=== PATIENT | female | born 2000 | race African-American/Black ===

== ENCOUNTER 2025-02-03 21:11 | Emergency (ER) | payer OTHER, SELFPAY ==
--- NOTE | ~2025-02-03 | XR_ITS ---
CLINICAL HISTORY: laceration, r o foreign body Left tibia/fibula, 2 views, 4 images COMPARISON: None provided FINDINGS: No acute fracture. No dislocation. Unremarkable soft tissues. No visible foreign body. IMPRESSION: No acute findings. This document has been electronically signed by: Milad Alonso MD on 02/03/2025 22:35:06
--- NOTE | ~2025-02-03 | XR_ITS ---
CLINICAL HISTORY: lacertaion, r o foreign body Right foot, 3 views COMPARISON: None provided FINDINGS: No acute fracture. No dislocation. Unremarkable soft tissues. No visible foreign body. IMPRESSION: No acute findings. This document has been electronically signed by: Milad Alonso MD on 02/03/2025 22:34:51
[2025-02-03 21:22] VITALS: PULSE 142; RESP 22; TEMP 36.4; O2SAT 96; BMI 37.3
--- NOTE | 2025-02-03 21:23 | PC.NURSE ---
pt brought to ed4 from [facility] crying, lacerations to L. knee and R. foot, bleeding minimal. dry blood cleaned up on extremities. Carlos A HOLLAND at bedside for assessment. PO meds will be ordered for pain/anxiety and XR per PA.
[2025-02-03 21:25] VITALS: BP 144/99
[2025-02-03] MEDS: oxyCODONE HCl Immed Release 5 MG TABLET PO (21:26)
[2025-02-03] MEDS: Lidocaine HCl 1%/Epi 1:100,000 10 ML VIAL INFILTRATI (21:26)
[2025-02-03] MEDS: Diphth,Pertus(ACell),Tet Adult 0.5 ML SYRINGE IM (21:27)
--- OUTSIDE RECORDS SUMMARY | 2025-02-03 21:38 | XMS_ITS | Clinical Summary ---
Author Organization [facility] [address] 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 08/14/2022 Active dicyclomine (BENTYL) 10 mg capsule Take 1 Capsule by mouth 3 times daily. 08/14/2022 Active ibuprofen (ADVIL,MOTRIN) 600 mg tablet Take 600 mg by mouth 4 times daily. Active ketoconazole (NIZORAL) 2 % shampoo Apply to affected skin on chest and back, leave on 10-15 minutes then rinse off 08/14/2022 Active Active Problems Problem Noted Date Diagnosed Date Mild intermittent asthma, uncomplicated 08/15/19 23 IBS (irritable bowel syndrome) 04/20/2020 Overview (05/21/2024): Sx improved with famotidine/ bentyl 06/02/20: telemedicine with [facility] GI, lab work for celiac, calprotectin fecal, Tsh, free t4. C/w diccyclomine 1 tab 2-4 times a day. pepcid 20 mg po bid. IBs diet. Anxiety 04/01/2020 Overview (05/21/2024): 05/26: sx controlled with celexa 20 mg Pityriasis versicolor 04/01/2020 Overview (05/21/2024): 03/25: rx for ketoconazole Irregular menstrual bleeding 08/19/2017 Overview (05/21/2024): 08/21: no period for 2 months. nl labs for PCOS. Started on apri [id number] adverse reaction to medication 05/17/2016 Overview (05/21/2024): 05/22: tamiflu trigger migraine headache Migraine without aura and wi thout status migrainosus, not intractable 03/08/2016 Depression 08/12/2015 Overview (05/21/2024): Jose David sanches [facility], med provider same agency. 07/20: celexa 40 mg 03/23: Cecy Coyle 04/24: celexa 20 mg, therapy every other week Acne 12/07/2014 Dysmenorrhea in the adolescent 12/07/2014 Disturbance in sleep behavior 11/16/2013 Overview (05/21/2024): Melatonin 05/26: clonidine Allergic rhinitis 09/13/2010 Overview (05/21/2024): Loratadine in the spring +RAST to ragweed V, oak, birch trees IV, pigweed, marcia grass III 11/16: sx better controlled with zyrtec Last Assessment & Plan: Add claritin in the fall Immunizations Immunization Administration Dates Next Due DTaP (Infanrix) 6wks to less than 7yo ,09/07/2003,2002,09/29,2002 [id number] (Pentacel) 2mo to less than 5yo 09/07/2003,2002,2002,07/31 HPV, Quadrivalent 05/19/2014,01/18/2014,11/17/19 14 Hepatitis B Pediatric (Enger ix B; Recombivax HB) to less than 20 yo 03/22/2003,2002,2002 IPV Inactivated polio (Ipol) 6wks and older 06/02/2007,03/22/2003,2002,07/31 Influenza trivalent, 0.5mL, preservative free (Fluarix; FluLaval; Fluzone) ages 6mo and older (Afluria) 3 years and older 03/29/2020,04/09/2019,01/19/2016,01/21,01/18/2014,01/23/2011,03/13/2006 Influenza trivalent, with pr eservative (Fluzone; Afluria) 6mo and older 02/06/2012,12/19/2009,01/20/2009,02/27,03/09/2007 MMR, measles mumps and rubel la Live (Priorix; M-M-R II) 12mo and older 07/24/2006,09/07/2003 Meningococcal MCV4P 04/09/2019,11/16/2013 Pneumococcal Conjugate Vacci ne, 7 Valent 06/02/2003,2002,2002,07/31 Tdap Tetanus diptheria acell ular pertussis (Boostrix; Adacel) 7yo and older 11/16/2013 Varicella live (Varivax) 12m o and older 07/24/2006,06/02/2003 Surgical History Surgery Date Site/Laterality Comments OTHER SURGICAL HISTORY PROCEDURE: EXCISION BENIGN LESION COMPL; COMMENT: right preauricular sinus tract on 02 TONSILLECTOMY PROCEDURE: HISTORICAL TONSILLECTOMY ADENOIDECTOMY PROCEDURE: HISTORICAL ADENOIDECTOMY NOSE SURGERY 09/05/16 PROCEDURE: SC UNLISTED PROCEDURE NOSE; COMMENT: Dr. Downey, repair of closed displaced non cumminuted nasal fracture Medical History Medical History Date Comments Acute upper respiratory infe ctions of unspecified site DX:Acute upper respiratory i nfections of unspecified site; COMMENT: 03/26/05,03/16/05 Scarlet fever DX:Scarlet fever ; COMMENT: 01/31/05 Acute tonsillitis DX:Acute tonsi llitis; COMMENT: 01/31/05,02 Acute suppurative otitis med ia without spontaneous rupture of eardrum DX:Acute suppurative otitis media without spontaneous rupture of eardrum; COMMENT: 08/08,05/09,04/07, 02/17 Pyogenic granuloma of skin a nd subcutaneous tissue DX:Pyogenic granuloma of ski n and subcutaneous tissue; COMMENT: 02/04/03 Streptococcal sore throat 02/11, 09/12 DX:Str eptococcal sore throat Tonsillar hypertrophy DX:Tonsill ar hypertrophy; COMMENT: sleep study in November, Nondisplaced fracture of fif th left metatarsal bone 11/2011 DX:Nondisplaced fracture of fifth left metatarsal bone; COMMENT: followed by [facility] orthopedics Abdominal pain 03/05 DX:Abdominal lubna n; COMMENT: seen at [facility], neg abd ultrasound/ct for appy Unspecified family circumstance 07/10/2010 DX:Unspecified family circumstance Dysthymia 08/29/2011 DX:Dysthymia Pharyngitis 01/2014 DX:Pharyngitis; COMMENT: seen at urgent care, neg strept Menarche 05/2014 DX:Menarche Mononucleosis 06/29/2015 DX:Mononucleosis ; COMMENT: 06/21: previous infection Passive smoke exposure 04/14/2015 DX:Passiv e smoke exposure Medical non-compliance 08/24/2015 DX:Medica l non-compliance; COMMENT: 08/19: no show to pedi cardiology twice. Unable to make future appts Asthma, mild persistent 10/09/2010 DX:Asthm a, mild persistent; COMMENT: 04/12/15: nl CXr at [facility] wing Concussion 03/26/2017 DX:Concussion; C OMMENT: 07/20 Concussion while playign Basketball on 07/20/16 Acanthosis nigricans 02/23/2015 DX:Acanthos is nigricans Eczema 07/10/2010 DX:Eczema E-coli UTI 02/26/2019 DX:E-coli UTI; C OMMENT: 02/21 Omnicef Childhood obesity 07/10/2010 DX:Childhood o besity; COMMENT: Normal cholesterol level 08/15. Seen at Dr. Robledo[facility] weight [facility] 09/14. Normal abdomenal ultrasound 12/15 met with sound printer down 1/2 pound 01/15 good job exercising with dog, weight loss 0.05 kg 01/15 completed 1,2,3 [facility] program. 02/16/15: returned to Dr. Robledo[facility] program 05/30/15: seen by Dr. Robledo, jered Bacon ea* IBS (irritable bowel syndrome) D X:IBS (irritable bowel syndrome) Mild intermittent asthma, uncomplicated DX:Mild intermittent asthma, uncomplicated Family History Medical History Relation Name Comments Asthma Father Diabetes Maternal Grandfather Diabetes Maternal Grandmother Migraines Mother Other: anxiety Mother mside Asthma Paternal Grandfather Relation Name Status Comments Father Alive 12/02/84 Maternal Grandfather Alive Maternal Grandmother Alive Mother Alive 06/04/82 Paternal Grandfather Alive Social History Tobacco Use Types Packs/Day Years Used Date Smoking Tobacco: Never Smokeless Tobacco: Current Alcohol Use Standard Drinks/Week Comments No 0 (1 standard drink = 0.6 oz pur e alcohol) Comments Unknown Sex and Gender Information Value Date Recorded Sex Assigned at Not on file Legal Sex Female 5:37 AM EST Gender Identity Not on file Sexual Orientation Not on file Obstetrics History Last Filed Vital Signs Vital Sign Reading Time Taken Comments Blood Pressure 100/60 05/21/2023 8:25 AM EST Pulse 72 05/21/2023 8:25 AM EST Temperature - - Respiratory Rate - - Oxygen Saturation - - Inhaled Oxygen Concentration - - Weight 85.7 kg (189 lb) 05/21/2023 8:25 AM EST Height 165.1 cm (5' 5 ) 05/21/2023 8:25 AM EST Body Mass Index 31.45 05/21/2023 8:25 AM EST Plan of Treatment Health Maintenance Due Date Last Done Comments COVID-19 Vaccine (#1) 2007 Pneumococcal Vaccine: Pediatrics (0 to 5 Years) and At-Risk Patients (6 to 49 Years) (1 of 1 - PPSV23, PCV20, or PCV21) 2008 06/02/2003, 2002, 2002, Additional history exists Meningococcal B Vaccine (1 of 2 - Standard) 2018 Gonorrhea/Chlamydia Screening 04/09/2020 04/09/2019 HIV Screening 04/14/2022 Social Influencers of Health Screening 04/14/2022 Cervical Cancer Screening: Pap Smear 2023 DTaP,Tdap,and Td Vaccines (7 - Td or Tdap) 11/17/2023 11/16/2013, 06/02/2007, 09/07/2003, Additional history exists Depression Screening 05/06/2024 Influenza Vaccine (#1) 2025 0, 04/09/2019, 01/19/2016, Additional history exists RSV Immunization Adult Patients (1 - 1-dose 75+ series) 2077 Hepatitis B Vaccines Completed 03/22/2003, 2002, 2002 HIB Vaccines Completed 09/07/2003, 11/04, 2002, Additional history exists MMR Vaccines Completed 07/24/2006, 09/07/2003 Varicella Vaccines Completed 07/24/2006, 06/02/2003 IPV Vaccines Completed 06/02/2007, 08/2003, 03/22/2003, Additional history exists Hepatitis C Screening Completed 09/09/2011 HPV Vaccines Completed 05/19/2014, 01/04, 11/16/2013 Meningococcal ACWY Vaccine Completed 04/09/2019, Hepatitis A Vaccines Aged Out No long er eligible based on patient's age to complete this topic RSV Immunization Patients Under 20 months Aged Out No longer eligible based on patient's age to complete this topic Procedures Procedure Name Priority Date/Time Associated Diagnosis Comments GONORRHEA/CHLAMYDIA SCRREENING Routine 04/09/2019 HEPATITIS C SCREENING Routine 09/09/2011 from Last 3 Months or Most Recently Relevant to Health Maintenance Results * Gonorrhea/Chlamydia Screening (04/09/2019) Gonorrhea/Chla mydia Screening abstracted us Historical Provider HEALTH MAINTENANCE Final Result * Hepatitis C Screening (09/09/2011) Hepatitis C Screening abstracted us Historical Provider HEALTH MAINTENANCE Final Result from Last 3 Months or Most Recently Relevant to Health Maintenance Insurance [facility] [employer] Care Teams Grain Farmworker Relationship Specialty Start Date End Date Martin Roper MD [address] [place] [phone] PCP - General Internal Medicine 11/04/24
--- OUTSIDE RECORDS SUMMARY | 2025-02-03 21:38 | XMS_ITS ---
Author Name [facility] Organization Unknown Care Team Organization Name Specialty Phone Email Start Date End Da te [facility] Natalia Gusman Primary Care 07/11/2022 12/23/2023 [facility] Edmar, PROVIDER Primary Care 03/13/202212/04
[2025-02-03 22:08] VITALS: BP 121/69; PULSE 73; RESP 16; TEMP 36.9; O2SAT 98
--- NOTE | 2025-02-03 23:07 | ED_ITS ---
HPI - General Adult General Chief complaint: Wound/Laceration Stated complaint: B/L leg injury Time Seen by Provider: 02/03/25 21:18 Source: patient, RN notes reviewed and old records reviewed Mode of arrival: ambulatory Limitations: no limitations History of Present Illness ED Provider: Deena HPI narrative: 24-year-old female presents for evaluation of 2 separate lacerations. She reports that she was doing the dishes when she dropped the Martini glass and sustained a laceration to her left giles and right foot The patient does not know when her last tetanus shot was. She reports that she drove herself here from [place], about a [address] She is quite anxious and has pain to the left giles and right foot. Related Data Allergies Allergy/AdvReac Type Severity Reaction Status Date / Time amoxicillin (AMOXICILLIN) Allergy Unknown HIVES Unverified 02/03/25 21:25 Review of Systems Constitutional: Constitutional: Denies chills, Denies frequent falls and Denies headache(s) ENT: Denies headache(s) Integumentary/Breasts: Skin/Breast: Reports wounds Neurologic: Denies frequent falls and Denies headache(s) PMFSH Social History Social History Advance Directives: No Advance Directives Information Provided: Yes Physical Exam ED Vital Signs: Vital Signs - 24 hr 02/03/25 21:22 02/03/25 21:25 02/03/25 22:08 Temperature 97.6 F 98.4 F Pulse Rate 142 H 73 Respiratory Rate 22 H 16 Blood Pressure 144/99 H 121/69 Pulse Oximetry 96 98 Oxygen Delivery Method Room Air Room Air BMI result Body Mass Index 37.3 Const General: healthy appearing, comfortable, no acute distress, alert and awake Nutritional Appearance: well nourished Orientation/consciousness: patient oriented x3 HENMT Head: Yes normocephalic and Yes atraumatic Eyes Eyelids: Yes eyelids normal Conjunctivae: conjunctivae normal Sclerae: sclerae normal Corneas: corneas normal Pupils: Equal, round and reactive pupils present EOM: EOMs intact bilaterally Neck Neck: Yes full ROM Resp Effort & Inspection: normal respiratory effort, able to speak in complete sentences and not labored Skin Other: There is a 5 cm linear laceration to the left anteromedial giles. There is subcutaneous tissue visible, no bone or musculature visible. There was no active bleeding. No obvious foreign body. There is a slightly smaller, 3-4 cm linear laceration to the dorsum of the right foot. No visible bone, vasculature, no obvious foreign body visible. No active bleeding General skin exam: elasticity normal Neuro General: patient oriented x3 Cranial nerves: Yes Equal, round and reactive pupils present and Yes Bilaterally intact EOM present Cognition (Neuro): normal cognition Medications Administered Discontinued Medications Generic Name Dose Route Start Last Admin Trade Name Freq PRN Reason Stop Dose Admin Diphtheria/Tetanus/Acell Pertussis 0.5 ml 02/03/25 21:21 02/03/25 21:27 Diphth,Pertus(Acell),Tet Adult 0.5 Ml Syringe IM 02/03/25 21:22 0.5 ml .ONCE ONE Administration Lidocaine/Epinephrine 10 ml 02/03/25 21:21 02/03/25 21:26 Lidocaine Hcl 1%/Epi 1:100,000 10 Ml Vial INFILTRATI 02/03/25 21:22 10 ml ONCE ONE Administration Lorazepam 1 mg 02/03/25 21:21 02/03/25 21:26 Lorazepam 1 Mg Tablet PO 02/03/25 21:22 1 mg ONCE ONE Administration Oxycodone HCl 5 mg 02/03/25 21:21 02/03/25 21:26 Oxycodone Hcl Immed Release 5 Mg Tablet PO 02/03/25 21:22 5 mg ONCE ONE Administration Procedures Laceration left leg: Site: lower extremity Side (If applicable): left Size (cm): 5 Description: linear Depth: simple, single layer Local Anesthetic: lidocaine 1% and with epi Amount of anesthesia used (mL): 5 Pre-repair: wound explored, irrigated extensively and deep structures intact Skin layer closed with: nylon Size (cm): 5-0 Number of sutures: 7 Technique: simple, interrupted right foot: Site: lower extremity Side (If applicable): right (foot) Size (cm): 5 Description: linear and irregular Depth: simple, single layer Local Anesthetic: lidocaine 1% and with epi Amount of anesthesia used (mL): 5 Pre-repair: wound explored, irrigated extensively and deep structures inta ct Skin layer closed with: nylon Size (cm): 5-0 Number of sutures: 10 Technique: simple, interrupted Medical Decision Making Medical Decision Making MDM Narrative: 24-year-old female presents for evaluation of 2 separate lacerations that were accidentally sustained while doing the dishes. A Martini glass was dropped, she had it and cut her left giles and right foot. The wounds were both irrigated extensively, no foreign body was noted, I did obtain an x-ray which does not show any obvious foreign body. See procedure note for wound repair. Differential Diagnosis Differential Diagnoses: The differential diagnosis associated with the presentation includes Laceration Foreign body Skin tear Abrasion Radiology Impression Discussion of test interpretation with radiology: I have reviewed the radiologist's reading. Radiologist Impression: FINDINGS: No acute fracture. No dislocation. Unremarkable soft tissues. No visible foreign body. IMPRESSION: No acute findings. This document has been electronically signed by: Milad Alonso MD on 02/03/2025 22:35:06 FINDINGS: No acute fracture. No dislocation. Unremarkable soft tissues. No visible foreign body. IMPRESSION: No acute findings. This document has been electronically signed by: Milad Alonso MD on 02/03/2025 22:34:51 Discharge Plan Discharge Clinical Impression: Laceration Patient Disposition: Home, Self-Care Instructions: Laceration (ED) Additional Instructions: You had 2 lacerations that were cleaned and closed today. The laceration on your left leg has 7 sutures. The laceration on your right foot has 10 sutures. These can be removed in 7-10 days. Keep the area clean and dry but you may apply topical antibiotic Monitor for signs of infection including redness, increased pain or drainage from the wound Return to the ER if he noticed these or develop any fevers or chills Print Language: Stateless
--- NOTE | 2025-02-04 01:02 | PC.NURSE ---
This Rn is not the primary nurse, just reviewed discharge instructions with pt and notified RN Marin
[2025-02-04 02:26] VITALS: BP 121/69; PULSE 73; RESP 16; TEMP 36.9; O2SAT 98
== END 2025-02-04 00:45 | disposition home or self-care (01) ==
PROVIDERS: Emergency Provider Student in an Organized Health Care Education/Training Program; PCP Pediatrics
DX: S81.812A Laceration without foreign body, left lower leg, initial encounter (principal); S91.311A Laceration without foreign body, right foot, initial encounter; W25.XXXA Contact with sharp glass, initial encounter; Y93.89 Activity, other specified; Y92.9 Unspecified place or not applicable; Y99.9 Unspecified external cause status
CPT/HCPCS: 12004; 73590; 73630; 90715; 99283; 99284; J2004

== ENCOUNTER → 2025-02-03 21:21 | Outpatient (BNV) | payer OTHER, SELFPAY | PROVIDERS: PCP Pediatrics; Visit Provider Radiology Diagnostic Radiology | DX: S91.311A Laceration without foreign body, right foot, initial encounter (principal); S81.812A Laceration without foreign body, left lower leg, initial encounter; W25.XXXA Contact with sharp glass, initial encounter | CPT/HCPCS: 73590; 73630 ==

== ENCOUNTER 2025-02-04 09:21 | Emergency (ER) | payer OTHER, SELFPAY ==
[2025-02-04 09:25] VITALS: BP 151/96; PULSE 93; RESP 22; TEMP 37; O2SAT 97; BMI 32.3
--- NOTE | 2025-02-04 09:36 | ED_ITS ---
HPI - General Adult General Chief complaint: Wound/Laceration Stated complaint: Stitches opened up? Pain still present Time Seen by Provider: 02/04/25 09:36 Source: patient Mode of arrival: ambulatory Limitations: no limitations History of Present Illness ED Provider: Karina Trejo PA-C HPI narrative: Patient is a 24 year old assigned female at with a history of right foot and left upper leg laceration s/p repair on 02/03/2025 presenting to the emergency department today with continued right foot pain and concern of oozing of blood from the wound. Patient states that she was seen yesterday and had her lacerations repaired but she noticed today that she is having worsening pain and is having some blood oozing from the wounds - concerning for the wound opening. Patient denies any other complaints at this time. Related Data Allergies Allergy/AdvReac Type Severity Reaction Status Date / Time amoxicillin (AMOXICILLIN) Allergy Unknown HIVES Unverified 02/04/25 09:31 Review of Systems Constitutional: Constitutional: Reports as per HPI Eyes: Eyes: Reports as per HPI ENT: Reports as per HPI Cardiovascular: Cardiovascular: Reports as per HPI Respiratory: Respiratory: Reports as per HPI Gastrointestinal: Gastrointestinal: Reports as per HPI Genitourinary: Genitourinary: Reports as per HPI Musculoskeletal: Musculoskeletal: Reports as per HPI Integumentary/Breasts: Skin/Breast: Reports as per HPI Neurologic: Reports as per HPI Psychiatric: Psychiatric: Reports as per HPI Endocrine: Endocrine: Reports as per HPI Hematologic/Lymphatic: Hematologic/Lymphatic: Reports as per HPI Allergic/Immunologic: Allergic/Immunologic: Reports as per HPI [facility]LY [facility], [facility] Past Medical History Attestation statement: The following information was validated with the patient. Source: old records reviewed and nursing notes reviewed Social History Social History Advance Directives: No Advance Directives Information Provided: Yes Physical Exam ED Vital Signs: Vital Signs - 24 hr 02/04/25 09:25 02/04/25 10:44 02/04/25 10:49 Temperature 98.6 F 97.3 F 97.3 F Pulse Rate 93 77 77 Respiratory Rate 22 H 16 16 Blood Pressure 151/96 H 122/76 122/76 Pulse Oximetry 97 98 98 Oxygen Delivery Method Room Air Room Air Room Air BMI result Body Mass Index 32.3 Const General: cooperative, no acute distress, alert and awake Nutritional Appearance: well nourished Orientation/consciousness: patient oriented x3 HENMT Head: Yes normal to inspection and Yes atraumatic Ears: hearing grossly normal bilaterally and external ears normal General nose exam: Normal external nose present, no nasal discharge noted and no epistaxis Face and sinus: Yes normal facial exam, No abrasion and No laceration Mouth: Normal oral and palatal mucosa present, no drooling and no muffled voice Eyes General: appearance normal, both eyes and all related structures Periorbital: periorbital findings normal Eyelids: Yes eyelids normal Conjunctivae: conjunctivae normal Pupils: Equal, round and reactive pupils present EOM: EOMs intact bilaterally Neck Neck: Yes normal visual inspection and Yes full ROM Resp Effort & Inspection: normal respiratory effort and able to speak in complete sentences Neuro General: patient oriented x3, moves all extremities and CN's II-XI intact bilaterally Cranial nerves: Yes Equal, round and reactive pupils present Cognition (Neuro): normal cognition Extrem Other: well approximated wound to the dorsal right foot - sutures intact / in place, not loose - no active bleeding well approximated wound to the left anterior thigh - sutures intact / in place, not loose - no active bleeding General: Yes full ROM and Yes capillary refill normal Psych Appearance: grossly normal Mental Status: mental status grossly normal Affect: normal affect Attitude: cooperative Thought process: Normal thought process present Thought content: Normal thought content present Insight: Good insight present (Psych) Medications Administered Discontinued Medications Generic Name Dose Route Start Last Admin Trade Name Freq PRN Reason Stop Dose Admin Ketorolac Tromethamine 15 mg 02/04/25 10:44 02/04/25 10:47 Ketorolac Tromethamine 15 Mg/Ml Vial IM 02/04/25 10:45 15 mg ONCE ONE Administration Procedures Orthopedic Splinting/Casting Right foot: Side: right Lower Extremity Injury Location: foot Lower Extremity Immobilizer: boot orthosis Medical Decision Making Medical Decision Making MDM Narrative: Patient is a 24 year old assigned female at with a history of right foot and left upper leg laceration s/p repair on 02/03/2025 presenting to the emergency department today with continued right foot pain and concern of oozing of blood from the wound. Patient's physical exam was as noted in the physical exam portion of this note and consistent with a right foot hematoma / contusion and well approximated right foot + left leg wounds. I explained my physical exam findings to the patient. I answered all questions asked by the patient. I explained to the patient that she is likely having pain and oozing secondary to a hematoma under the wound which is common in soft tissue injuries. Patient states that her shoe is uncomfortable to ambulate in. Patient was provided a walking boot for comfort. Patient's PMS was intact prior to and after walking boot placement. I stressed the importance of the patient taking her medication as directed (either prescribed or as the over the counter packaging recommends). I stressed the importance of the patient following up with her primary care provider and if pain persists - the orthopedic team. I stressed the importance of the patient returning to the emergency department immediately if her symptoms were to worsen or if she were to develop any dizziness, shortness of breath, difficulty breathing, chest pain, blurry vision, loss of vision, nausea, vomiting, abdominal pain, fever, chills, back pain, or any other complaints. Patient verbalized agreement and understanding with this treatment plan and discharge. Differential Diagnosis Differential Diagnoses: The differential diagnosis associated with the presentation includes Right foot pain Right foot hematoma Admission/Observation Consideration of admission/observation: Escalation of care including admission/observation considered Patient would have been admitted to the hospital had her clinical presentation warranted hospital admission. Discharge Plan Discharge Clinical Impression: Hematoma of foot Patient Disposition: Home, Self-Care Instructions: Foot Contusion (ED) Additional Instructions: Your wounds are well approximated and your wounds appear to be healing well. Your right foot is having pain secondary to the hematoma developing - this is normal after injury to the soft tissue of the foot. Some oozing of blood can also be normal after soft tissue injury and mechanical repair. You've been provided a short walking boot to make ambulating less painful and I've given you direction to elevate your right lower extremity when stationary. This should also help with swelling. IF your pain continues >1 week from today - you should follow up with the orthopedic team. IF you are prescribed home medications and/or you are taking over the counter medications at home - it is very important you continue to do so as prescribed / directed unless told otherwise. Follow up with your primary care provider. Return to the emergency department immediately if your symptoms worsen or if you develop any numbness, tingling, dizziness, shortness of breath, difficulty breathing, chest pain, blurry vision, loss of vision, nausea, vomiting, abdominal pain, fever, chills, back pain, or any other complaints. Please see the information below about our Patient Portal. If you are not yet enrolled in the [facility] Patient Portal, you will receive an enrollment email invitation following your visit to any [facility] setting. You may also self-enroll in the Patient Portal by visiting our website: [email or web address] The following information is required to access the Patient Portal: - Your [facility] Medical Record Number - Your personal home email address (must match what is in your electronic medical record, Registration staff can assist with this) - Name - Date of Capabilities of the Patient Portal: - Message some providers - View upcoming appointments - Access your health summary, medical history, and visit history - View current conditions and allergies - View procedure and lab results - View your medications, including guidelines, side effects, and precautions - Complete pre-appointment questionnaires requested by your provider - Ready summary reports of your office visits and procedures To access the Patient Portal Mobile Adeel, follow these directions: - Search [employer] in the Adeel Store or Forrst Store - Download the Adeel - Search for [facility] - Enter your login/password Referrals: [facility] Orthopedic Surgeons [Provider Group] Referral Note: If your right foot pain continues for >1 week, please call to establish and follow up with the orthopedic team. Jena Ruvalcaba MD [Primary Care Provider, Pediatrics] Stand Alone Forms: Work/School Release Interventions: ED Discharge Assessment Last Done: 02/04/25 10:49 Discharge Date/Time: 02/04/25 10:53 Print Language: Choose Not To Answer
[2025-02-04 10:44] VITALS: BP 122/76; PULSE 77; RESP 16; TEMP 36.3; O2SAT 98
[2025-02-04 10:49] VITALS: BP 122/76; PULSE 77; RESP 16; TEMP 36.3; O2SAT 98
--- OUTSIDE RECORDS SUMMARY | 2025-02-04 10:51 | XMS_ITS | Clinical Summary ---
Author Organization [facility] [address] [facility] Address [address] [place] [address] Phone Care Team Providers Care Marketing Project Lead Name Role Phone Martin Roper MD Primary Care Provider [phone] Allergies Active Allergy Reactions Criticality Noted Date [...] improved with famotidine/ bentyl 06/02/20: telemedicine with [facility], lab work for celiac, calprotectin [...] nl labs for PCOS. Started on apri Kxw-frzu-gssgyye adverse reaction to medication 05/17/2016 Overview (05/21/2024): 05/22: tamiflu trigger migraine headache Migraine without aura and wi thout status migrainosus, not intractable 03/08/2016 Depression 08/12/2015 Overview (05/21/2024): Jose David sanches [facility], med provider same agency. 07/20: celexa [...] (Infanrix) 6wks to less than 7yo ,09/07/2003,2002,09/29,2002 [id number] (Pentacel) 2mo to less than 5yo 09/07/2003,2002,2002,07/31 [...] PROCEDURE: HISTORICAL ADENOIDECTOMY NOSE SURGERY 09/05/16 PROCEDURE: [place] UNLISTED PROCEDURE NOSE; COMMENT: Dr. Downey, repair [...] fifth left metatarsal bone; COMMENT: followed by [facility] orthopedics Abdominal pain 03/05 DX:Abdominal lubna n; COMMENT: seen at [facility], neg abd ultrasound/ct for appy Unspecified [...] mild persistent; COMMENT: 04/12/15: nl CXr at [facility] wing Concussion 03/26/2017 DX:Concussion; C OMMENT: 07/20 Concussion while playign Basketball on 07/20/16 Acanthosis nigricans 02/23/2015 DX:Acanthos is nigricans Eczema 07/10/2010 DX:Eczema E-coli UTI 02/26/2019 DX:E-coli UTI; C OMMENT: 02/21 Omnicef Childhood obesity 07/10/2010 DX:Childhood o besity; COMMENT: Normal cholesterol level 08/15. Seen at Dr. Robledo[facility] weight loss [facility] 09/14. Normal abdomenal ultrasound 12/15 met with [place] planning manager down 1/2 pound 01/15 good job exercising [...] Most Recently Relevant to Health Maintenance Insurance [employer] Care Teams Marketing Project Lead Relationship Specialty Start Date End Date Martin Roper MD [address] [place] [id number] PCP - General Internal Medicine 11/04/24
== END 2025-02-04 10:53 | disposition home or self-care (01) ==
PROVIDERS: Emergency Provider Emergency Medicine; PCP Pediatrics
DX: M96.840 Postprocedural hematoma of a musculoskeletal structure following a musculoskeletal system procedure (principal); M79.671 Pain in right foot
CPT/HCPCS: 96372; 99284; J1885

== ENCOUNTER 2025-02-14 12:12 | Emergency (ER) | payer OTHER, SELFPAY ==
--- NOTE | 2025-02-14 12:16 | ED_ITS ---
HPI - General Adult General Chief complaint: Wound/Laceration Stated complaint: suture removal Time Seen by Provider: 02/14/25 12:27 Source: patient Mode of arrival: ambulatory Limitations: no limitations History of Present Illness ED Provider: Karina Trejo PA-C HPI narrative: Patient is a 24 year old assigned female at with a history of right foot and left upper leg laceration s/p repair on 02/03/2025 presenting to the emergency department today for suture removal. Patient states that she needs to have her sutures removed from her right foot and left leg. Patient states that she had called and spoke to someone about redness around the areas and was prescribed a medication that was PCN based and the replacement medication was never sent so she never took any antibiotics for the redness. Patient denies any other complaints at this time. Related Data Previous Rx's ?Medication ?Instructions ?Recorded doxycycline hyclate 100 mg tablet 100 mg PO BID 7 days #14 tabs 02/14/25 Allergies Allergy/AdvReac Type Severity Reaction Status Date / Time amoxicillin (AMOXICILLIN) Allergy Unknown HIVES Verified 02/14/25 12:18 Review of Systems 2 Constitutional: Constitutional: Reports as per HPI Eyes: Eyes: Reports as per HPI ENT: Reports as per HPI Cardiovascular: Cardiovascular: Reports as per HPI Respiratory: Respiratory: Reports as per HPI Gastrointestinal: Gastrointestinal: Reports as per HPI Genitourinary: Genitourinary: Reports as per HPI Musculoskeletal: Musculoskeletal: Reports as per HPI Integumentary/Breasts: Skin/Breast: Reports as per HPI Neurologic: Reports as per HPI Psychiatric: Psychiatric: Reports as per HPI Endocrine: Endocrine: Reports as per HPI Hematologic/Lymphatic: Hematologic/Lymphatic: Reports as per HPI Allergic/Immunologic: Allergic/Immunologic: Reports as per HPI [facility] Past Medical History Attestation statement: The following information was validated with the patient. Source: old records reviewed and nursing notes reviewed Social History Social History Advance Directives: No Advance Directives Information Provided: Yes Do you have a plan to hurt others: No Plan Physical Exam ED Vital Signs: Vital Signs - 24 hr 02/14/25 12:17 Temperature 98 F Pulse Rate 78 Respiratory Rate 18 Blood Pressure 117/68 Pulse Oximetry 98 Oxygen Delivery Method Room Air BMI result Body Mass Index 33.3 Const General: cooperative, no acute distress, alert and awake Nutritional Appearance: well nourished Orientation/consciousness: patient oriented x3 HENMT Head: Yes normal to inspection and Yes atraumatic Ears: hearing grossly normal bilaterally and external ears normal General nose exam: Normal external nose present, no nasal discharge noted and no epistaxis Face and sinus: Yes normal facial exam, No abrasion and No laceration Mouth: Normal oral and palatal mucosa present, no drooling and no muffled voice Eyes General: appearance normal, both eyes and all related structures Periorbital: periorbital findings normal Eyelids: Yes eyelids normal Conjunctivae: conjunctivae normal Pupils: Equal, round and reactive pupils present EOM: EOMs intact bilaterally Neck Neck: Yes normal visual inspection and Yes full ROM Resp Effort & Inspection: normal respiratory effort and able to speak in complete sentences Neuro General: patient oriented x3, moves all extremities and CN's II-XI intact bilaterally Cranial nerves: Yes Equal, round and reactive pupils present Cognition (Neuro): normal cognition Extrem Other: General: Yes full ROM and Yes capillary refill normal Psych Appearance: grossly normal Mental Status: mental status grossly normal Affect: normal affect Attitude: cooperative Thought process: Normal thought process present Thought content: Normal thought content present Insight: Good insight present (Psych) Medications Administered Discontinued Medications Generic Name Dose Route Start Last Admin Trade Name Freq PRN Reason Stop Dose Admin Doxycycline Monohydrate 100 mg 02/14/25 12:27 02/14/25 12:39 Doxycycline Monohydrate 100 Mg Capsule PO 02/14/25 12:28 100 mg ONCE ONE Administration Procedures Procedure Narrative Procedure Narrative: Patient's 7 sutures were removed from her left leg laceration Patient's 5 sutures were removed from her right foot laceration Patient's lacerations are well approximated but very erythematous and tender, concerning for infection. Patient tolerated suture removal but did have pain, no drainage or re-opening. Medical Decision Making Medical Decision Making MDM Narrative: Patient is a 24 year old assigned female at with a history of right foot and left upper leg laceration s/p repair on 02/03/2025 presenting to the emergency department today for suture removal. Patient's physical exam was as noted in the physical exam portion of this note and concerning for wound cellulitis. I explained my physical exam findings to the patient. I answered all questions asked by the patient. Patient's sutures were removed, per the procedure note. Patient's PMS was intact prior to and after suture removal. Patient did experience pain while the sutures were being removed which I believe is secondary to the surrounding cellulitis. Patient prescribed doxycycline for cellulitis. I stressed the importance of the patient taking her medication as directed (either prescribed or as the over the counter packaging recommends). I stressed the importance of the patient following up with her primary care provider and with the wound center to ensure the wounds heal appropriately. I stressed the importance of the patient returning to the emergency department immediately if her symptoms were to worsen or if she were to develop any dizziness, shortness of breath, difficulty breathing, chest pain, blurry vision, loss of vision, nausea, vomiting, abdominal pain, fever, chills, back pain, or any other complaints. Patient verbalized agreement and understanding with this treatment plan and discharge. Differential Diagnosis Differential Diagnoses: The differential diagnosis associated with the presentation includes Cellulitis Suture removal Admission/Observation Consideration of admission/observation: Escalation of care including admission/observation considered Patient would have been admitted to the hospital had her clinical presentation warranted hospital admission. Prescription Management I considered prescription management with: Antibiotic (patient prescribed an antibiotic for probable wound cellulitis. ) Discharge Plan Discharge Clinical Impression: Encounter for removal of sutures Cellulitis Qualifiers: Site of cellulitis: extremity Site of cellulitis of extremity: lower extremity Laterality: unspecified laterality Qualified Code(s): L03.119 - Cellulitis of unspecified part of limb Patient Disposition: Home, Self-Care Instructions: Cellulitis (ED), Stitches Removal (ED) Additional Instructions: Your sutures were removed today. Your wounds appear to be infected. It is crucial you take your antibiotic as prescribed. While on this antibiotic - avoid direct sunlight as it can cause a rash. Follow up with the wound center to ensure these wounds heal appropriately. Once all scabbing falls away, apply sunscreen to the areas every day for 1 full year to mitigate scarring. IF you are prescribed home medications and/or you are taking over the counter medications at home - it is very important you continue to do so as prescribed / directed unless told otherwise. Follow up with your primary care provider. Return to the emergency department immediately if your symptoms worsen or if you develop any numbness, tingling, dizziness, shortness of breath, difficulty breathing, chest pain, blurry vision, loss of vision, nausea, vomiting, abdominal pain, fever, chills, back pain, or any other complaints. Please see the information below about our Patient Portal. If you are not yet enrolled in the [facility] Patient Portal, you will receive an enrollment email invitation following your visit to any [facility] setting. You may also self-enroll in the Patient Portal by visiting our website: [email or web address] The following information is required to access the Patient Portal: - Your [facility] Medical Record Number - Your personal home email address (must match what is in your electronic medical record, Registration staff can assist with this) - Name - Date of Capabilities of the Patient Portal: - Message some providers - View upcoming appointments - Access your health summary, medical history, and visit history - View current conditions and allergies - View procedure and lab results - View your medications, including guidelines, side effects, and precautions - Complete pre-appointment questionnaires requested by your provider - Ready summary reports of your office visits and procedures To access the Patient Portal Mobile Adeel, follow these directions: - Search [employer] in the Adeel Store or [employer] Store - Download the Adeel - Search for [facility] - Enter your login/password Prescriptions: New doxycycline hyclate 100 mg tablet 100 mg PO BID 7 Days Qty: 14 0RF Referrals: [facility] Wound Care Management [Provider Group] Referral Note: Call to establish and follow up with the wound center to ensure your wounds heal appropriately. Jena Ruvalcaba MD [Primary Care Provider, Pediatrics] Print Language: Choose Not To Answer
[2025-02-14 12:17] VITALS: BP 117/68; PULSE 78; RESP 18; TEMP 36.6; O2SAT 98; BMI 33.3
--- OUTSIDE RECORDS SUMMARY | 2025-02-14 12:41 | XMS_ITS | Clinical Summary ---
Author Organization [facility] [address] [facility] Address [address] [place] [address] Phone Care Team Providers Care Pile Driving Superintendent Name Role Phone Martin Roper MD Primary Care Provider [phone] Allergies Active Allergy Reactions Criticality Noted Date [...] improved with famotidine/ bentyl 06/02/20: telemedicine with [facility], lab work for celiac, calprotectin [...] nl labs for PCOS. Started on apri Ilu-jgin-yrknigd adverse reaction to medication 05/17/2016 Overview (05/21/2024): 05/22: tamiflu trigger migraine headache Migraine without aura and wi thout status migrainosus, not intractable 03/08/2016 Depression 08/12/2015 Overview (05/21/2024): Jose David sanches [facility] med provider same agency. 07/20: celexa 40 [...] (Infanrix) 6wks to less than 7yo ,09/07/2003,2002,09/29,2002 [id number] (Pentacel) 2mo to less than 5yo 09/07/2003,2002,2002,07/31 [...] PROCEDURE: HISTORICAL ADENOIDECTOMY NOSE SURGERY 09/05/16 PROCEDURE: [place] UNLISTED PROCEDURE NOSE; COMMENT: Dr. Downey, repair [...] fifth left metatarsal bone; COMMENT: followed by [facility] orthopedics Abdominal pain 03/05 DX:Abdominal lubna n; COMMENT: seen at [place], neg abd ultrasound/ct for appy Unspecified [...] mild persistent; COMMENT: 04/12/15: nl CXr at [facility] wing Concussion 03/26/2017 DX:Concussion; C OMMENT: 07/20 Concussion while playign Basketball on 07/20/16 Acanthosis nigricans 02/23/2015 DX:Acanthos is nigricans Eczema 07/10/2010 DX:Eczema E-coli UTI 02/26/2019 DX:E-coli UTI; C OMMENT: 02/21 Omnicef Childhood obesity 07/10/2010 DX:Childhood o besity; COMMENT: Normal cholesterol level 08/15. Seen at Dr. Robledo[facility] [place] weight loss [facility] 09/14. Normal abdomenal ultrasound 12/15 met with media consultant outside sales down 1/2 pound 01/15 good job exercising [...] Most Recently Relevant to Health Maintenance Insurance [facility] [employer] Care Teams Pile Driving Superintendent Relationship Specialty Start Date End Date Martin Roper MD [address] [place] [phone] PCP - General Internal Medicine 11/04/24
== END 2025-02-14 12:56 | disposition home or self-care (01) ==
LOC: HO.ED 12:38
PROVIDERS: Emergency Provider Emergency Medicine; PCP Pediatrics
DX: L03.116 Cellulitis of left lower limb (principal); L03.115 Cellulitis of right lower limb
CPT/HCPCS: 99281; 99283

== ENCOUNTER 2025-04-13 14:37 | Outpatient (REF) | payer OTHER, SELFPAY ==
[2025-04-13 16:07] LABS: MANUAL DIFF FLAG NO
[2025-04-13 17:04] LABS: Hematocrit 39.4 % (37.0-47.0); Hemoglobin 13.8 g/dl (12.0-16.0); Imm Gran Abs Auto 0.05 X10*3/uL (0.00-0.03); Imm Gran Pct Auto 0.4 % (0.0-0.4); Lymphocytes Absolute Auto 3.0 X10*3/uL (1.2-4.9); Mean Corpuscular HGB Conc 35.0 g/dl (31.0-35.0); Mean Corpuscular Hemoglobin 30.9 pg (27.0-33.0); Mean Corpuscular Volume 88.1 fL (80.0-98.0); NRBC Abs Auto 0.000 X10*3/uL (0.0-0.012); NRBC Pct Auto 0.0 /100WBC (0.0-0.2); Platelet Count 424 X10*3/uL (160-400); Red Blood Count 4.47 X10*6/uL (4.20-5.50); White Blood Count 12.6 X10*3/uL (4.8-10.8)
[2025-04-13 17:32] LABS: UPreg QC Valid YES
[2025-04-13 18:09] LABS: Alanine Aminotransferase 28 U/L (0-31); Albumin Level 4.9 g/dL (3.5-5.0); Alkaline Phosphatase 66 U/L (39-117); Anion Gap 11 (12-20); Aspartate Amino Transferase 21 U/L (5-31); Blood Urea Nitrogen 18 mg/dL (9-16); Calcium 9.4 mg/dL (8.4-10.2); Carbon Dioxide 27 mmol/L (22-29); Chloride 108 mmol/L (96-108); Cholesterol 160 mg/dL (<200); Estimated Glomerular Filt Rate > 60; HDL Cholesterol 46 mg/dL (>40); Potassium 3.7 mmol/L (3.3-5.1); Sodium 142 mmol/L (135-145); Total Protein 7.7 g/dL (6.5-8.0); Triglycerides 98 mg/dL (<150)
--- OUTSIDE RECORDS SUMMARY | 2025-04-13 22:35 | XMS_ITS | Clinical Summary ---
Author Organization [facility] [address] [facility] Address [address] [place] [address] Phone Care Team Providers Care Horticulture Supervisor Name Role Phone Martin Roper MD Primary Care Provider [phone] Allergies Active Allergy Reactions Criticality Noted Date [...] improved with famotidine/ bentyl 06/02/20: telemedicine with [facility] GI, lab work for celiac, calprotectin [...] nl labs for PCOS. Started on apri [id number]-[id number] adverse reaction to medication 05/17/2016 Overview (05/21/2024): 05/22: tamiflu trigger migraine headache Migraine without aura and wi thout status migrainosus, not intractable 03/08/2016 Depression 08/12/2015 Overview (05/21/2024): Jose David sanches [facility], med provider same agency. 07/20: celexa 40 [...] (Infanrix) 6wks to less than 7yo ,09/07/2003,2002,09/29,2002 [id number] (Pentacel) 2mo to less than 5yo 09/07/2003,2002,2002,07/31 [...] PROCEDURE: HISTORICAL ADENOIDECTOMY NOSE SURGERY 09/05/16 PROCEDURE: [place] UNLISTED PROCEDURE NOSE; COMMENT: Dr. Downey, repair [...] fifth left metatarsal bone; COMMENT: followed by [facility] orthopedics Abdominal pain 03/05 DX:Abdominal lubna n; COMMENT: seen at [facility], neg abd ultrasound/ct for appy Unspecified [...] mild persistent; COMMENT: 04/12/15: nl CXr at [facility] wing Concussion 03/26/2017 DX:Concussion; C OMMENT: 07/20 Concussion while playign Basketball on 07/20/16 Acanthosis nigricans 02/23/2015 DX:Acanthos is nigricans Eczema 07/10/2010 DX:Eczema E-coli UTI 02/26/2019 DX:E-coli UTI; C OMMENT: 02/21 Omnicef Childhood obesity 07/10/2010 DX:Childhood o besity; COMMENT: Normal cholesterol level 08/15. Seen at Dr. Robledo's 1,2,3 [facility] weight loss [facility] 09/14. Normal abdomenal ultrasound 12/15 met with intercell connector placer down 1/2 pound 01/15 good job exercising [...] on file Sexual Orientation Not on file Last Filed Vital Signs Vital Sign Reading [...] Most Recently Relevant to Health Maintenance Insurance [facility] PL[facility] Care Teams Horticulture Supervisor Relationship Specialty Start Date End Date Martin Roper MD [address] [place] [id number] PCP - General Internal Medicine 11/04/24
[2025-04-21 17:18] LABS: Testosterone, Free 3.4 pg/mL (0.1-6.4)
== END 2025-04-13 14:38 | disposition home or self-care (01) ==
LOC: HO.LAB 14:37
PROVIDERS: PCP Physician Assistant; Visit Provider Physician Assistant
DX: Z00.00 Encounter for general adult medical examination without abnormal findings (principal); R20.2 Paresthesia of skin; L68.0 Hirsutism; L91.0 Hypertrophic scar; L98.9 Disorder of the skin and subcutaneous tissue, unspecified; N76.0 Acute vaginitis; B96.89 Other specified bacterial agents as the cause of diseases classified elsewhere
CPT/HCPCS: 36415; 80048; 80061; 80076; 81025; 82306; 82627; 83036; 84402; 84403; 84443; 85025; 99212; 99385

== ENCOUNTER 2025-04-13 14:37 | Outpatient (AMB) | payer OTHER, SELFPAY ==
--- NOTE | 2025-04-13 14:46 | MHC.PC.OV ---
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 - see comments Bulb Grower Required: No Accompanied by: Significant Other Allergies amoxicillin (AMOXICILLIN) Allergy (Unknown, Verified 04/13/25 14:48) HIVES Medication List - Last Reconciled 04/13/25 by AMALIA Ramirez mupirocin 2% (Centany) 1 appl topical BID Dental Screening Dental Screen Date: 04/13/25 Did you have a dental visit in the last 12 months?: Yes Did you have a dental problem in the last 6 months where you did not have access to dental care?: No Was dental information given to patient?: Patient has dentist HPI HPI Comments History of Present Illness Details 24-year-old female without any significant past medical history presents to the office today accompanied by her boyfriend to establish care and for annual physical exam. Lives with her mom and feels safe there. 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 Reports occasional alcohol. No history of cigarettes. No illicit drugs. Smokes marijuana. No formal exercise, but has a plan to start exercise today. Overall, reports she is following a healthy diet, but she states that she does cheat. Severe obesity-BMI 37.6 Concerns: Vaginal discharge-her about 1.5 months has been experiencing a thin foul-smelling discharge. She does report she used different soap. Denies pruritus or pain Lacerations of the right foot and medial left lower leg-cut herself on broken glass on February 03. She did have sutures placed in each location. She then had these removed after 10 days but did develop an infection for which she took doxycycline for for 7 days. She does have somewhat hypertrophied hyperpigmented scars in each area. Reports some pruritus around each lesion. She does continue with paresthesias of the dorsum of the right foot. She denies pain but is concerned about the paresthesias. She was in a boot and feels that with her job, she has not been allowed adequate rest to allow for full resolution of symptoms. She has not received any restricted work schedule or accommodations. She works both in outpatient receptionist and maintenance with heavy lifting and for the last 3 hours of her day, does not have any assistance with this. She is looking for FMLA. Reporting cystic lesions between the thighs. Does endorse hirsutism and irregular menses. No formal diagnosis of PCOS Health maintenance: Overdue for home mortgage disclosure act specialist/Pap smear ROS: General: No fevers, malaise, unintentional weight loss HEENT: No blurred vision, diplopia. No sore throat, nasal congestion, rhinorrhea, sinus pain, ear pain. No hearing loss Neck - no adenopathy Cardiovascular: No chest pain, palpitations, or leg edema Respiratory: No shortness of breath, wheezing, cough Breast: No pain, palpable lumps, nipple inversion GI: No dysphagia, odynophagia, globus sensation. No abdominal pain, nausea, vomiting, diarrhea, constipation, melena, hematochezia : No dysuria, hematuria, increased urinary frequency, decreased urinary output. PLACER MINER: No abn vaginal bleeding or discharge MSK: No myalgia, back pain, arthralgias Neuro: No headaches, weakness. See HPI Psych: no depression/anxiery. No AH/VH. No SI/HI Skin: No rashes or lesions. See HPI EXAM: Constitutional - Awake and Alert, No apparent distress Eyes - PERRLA, EOMI. Anicteric Ears - external ears normal, canals clear, TMs intact and pearly vasquez with good cone of light Nose- septum midline, nares clear, no sinus tenderness Mouth/throat- mucosa moist, tongue and uvula midline, no erythema/edema or tonsillar adenopathy. Neck-trachea midline, thyroid symmetric without palpable nodules, no adenopathy Cardiovascular - S1S2, RRR, No edema Respiratory - Normal lung expansion, Normal respiratory effort, No respiratory distress, CTA bilaterally Gastrointestinal - NT / ND; +BS; No rebound or guarding - No CVA tenderness Extremities - no calf tenderness bilaterally, no swelling Musculoskeletal - Normal inspection, normal ROM Skin - Warm/Dry, no concerning lesions. Hyperpigmented indurated lesions the medial aspect of the size bilaterally. No fluctuance or drainage . Hypertrophies hyperpigmented scars of the dorsum of the right foot and medial aspect of the left lower leg Neurological - Alert & oriented x3, CN II-XII in tact, 5/5 strength BUE and BLE, 2+ patellar reflexes. Decreased sensation over the distal and medial aspect of the right foot Psychological - Appropriate affect [facility] Medical History (Updated 04/13/25 @ 16:21 by AMALIA Ramirez) No pertinent past medical history Surgical History (Updated 04/13/25 @ 15:19 by AMALIA Ramirez) No pertinent past surgical history Family History (Updated 04/13/25 @ 15:20 by AMALIA Ramirez) Other No pertinent past medical history Social History Housing: Apartment Patient Tobacco Use Status: Never used Tobacco e-Cigarette/Vaping Use: Never Used Current occupational status: employed Current occupation: post office Questionnaire AUDIT C Alcohol Use Questionnaire (AUDIT-C) 1. How often do you have a drink containing alcohol?: Monthly or less 2. How many drinks containing alcohol do you have on a typical day when you are drinking?: 1 or 2 3. How often do you have six or more drinks on one occasion?: Never Total Score: 1 Physical exam (Primary Care) Vital Signs: Last Vital Signs Temp 97.1 F 04/13/25 14:47 Pulse 92 04/13/25 14:47 Resp 16 04/13/25 14:47 BP 116/80 04/13/25 14:47 Pulse Ox 97 04/13/25 14:47 Oxygen Delivery Method Room Air 04/13/25 14:47 BMI result Body Mass Index 37.6 Tobacco/Smoking Status: Tobacco use Status Patient Tobacco Use Status Never used Tobacco 04/13/25 14:52 e-Cigarette/Vaping Use Never Used 04/13/25 14:52 Coding Level of Care Code Est Pt Level 4 (57545) New Pt Prev Care 18-39yr(39945 Diagnoses Routine medical exam Z00.00 Scar, hypertrophic L91.0 Benign skin lesion of thigh L98.9 Paresthesia of foot R20.2 Hirsutism L68.0 Bacterial vaginosis N76.0; B96.89 Assessment & Plan Assessment & Plan (1) Routine medical exam: Code(s): Z00.00 - Encounter for general adult medical examination without abnormal findings Category: Medical Plan: 24-year-old female presenting for annual physical exam and to establish care. (2) Scar, hypertrophic: Code(s): L91.0 - Hypertrophic scar Category: Medical Plan: Discussed that scar is early in healing process. Recommend vitamin E and can also use antibiotic ointment over this. Discussed that pruritus is normal (3) Benign skin lesion of thigh: Code(s): L98.9 - Disorder of the skin and subcutaneous tissue, unspecified Category: Medical Plan: Cystic lesions possibly related to PCOS. There is induration. Prescribed doxycycline 100 mg twice daily. If no improvement, can refer to dermatology (4) Paresthesia of foot: Code(s): R20.2 - Paresthesia of skin Category: Medical Plan: Likely secondary to injury as well as suture. She is concerned about further injury to the foot. Referred to Podiatry. Discussed that lesions around the scarring are not infected (5) Hirsutism: Code(s): L68.0 - Hirsutism Category: Medical Plan: Coupled by cystic lesions and irregular menses. Check testosterone and DHEA. Has referral to home mortgage disclosure act specialist pending. Not interested no CP at this time (6) Bacterial vaginosis: Code(s): N76.0 - Acute vaginitis; B96.89 - Other specified bacterial agents as the cause of diseases classified elsewhere Category: Medical Plan: Metrogel prescribed for 5 days. Plan Routine screening labs as ordered below Referred for Pap smear Continue following for annual skin exams and use sun protection Eye exams as needed. Dental exams twice yearly Wear seat belt in car Recommend regular exercise and healthy diet Follow-up in the office in 1 year for physical, sooner if needed Orders: Orders Basic Metabolic Panel Today R20.2 - Paresthesia of skin, Z00.00 - Encounter for general adult medical examination without abnormal findings Complete Blood Count Auto Diff Today R20.2 - Paresthesia of skin, Z00.00 - Encounter for general adult medical examination without abnormal findings Hemoglobin A1c Today R20.2 - Paresthesia of skin, Z00.00 - Encounter for general adult medical examination without abnormal findings Lipid Panel Today R20.2 - Paresthesia of skin, Z00.00 - Encounter for general adult medical examination without abnormal findings Liver Panel Today R20.2 - Paresthesia of skin, Z00.00 - Encounter for general adult medical examination without abnormal findings Vitamin D 25-OH Total Today R20.2 - Paresthesia of skin, Z00.00 - Encounter for general adult medical examination without abnormal findings Ur Preg Test Today Z00.00 - Encounter for general adult medical examination without abnormal findings Testosterone, Free/Total Today L68.0 - Hirsutism DHEA Sulfate Today L68.0 - Hirsutism TSH reflex Free T4 Today R20.2 - Paresthesia of skin, Z00.00 - Encounter for general adult medical examination without abnormal findings Referrals Podiatry Referral R20.2 - Paresthesia of skin HVAC PROJECT ENGINEER Referral Z12.4 - Encounter for screening for malignant neoplasm of cervix Medications: New metronidazole 1.3%(65mg/5gram) 1 appful vaginal BEDTIME 5 grams 0RF 1 dose mupirocin 2% (Centany) 1 appl topical BID 22 grams 1RF doxycycline hyclate 100 mg PO BID 14 caps 0RF Discontinued doxycycline hyclate Discontinued Reason: Patient Completed Course 100 mg PO BID 7 days 14 tabs 0RF
[2025-04-13 14:47] VITALS: BP 116/80; PULSE 92; RESP 16; TEMP 36.2; O2SAT 97; BMI 37.6
== END 2025-04-13 15:45 | disposition home or self-care (01) ==
LOC: HO.HMCHD 14:38
PROVIDERS: Visit Provider Physician Assistant
DX: Z00.00 Encounter for general adult medical examination without abnormal findings (principal); L91.0 Hypertrophic scar; N76.0 Acute vaginitis; L98.9 Disorder of the skin and subcutaneous tissue, unspecified; R20.2 Paresthesia of skin; L68.0 Hirsutism; B96.89 Other specified bacterial agents as the cause of diseases classified elsewhere

== ENCOUNTER 2025-04-19 13:48 | Outpatient (AMB) | payer OTHER, SELFPAY ==
--- NOTE | 2025-04-19 13:56 | MHC.PC.OV ---
Vital Signs 04/19/25 13:57 Height 5 ft 4.5 in Weight 222 lb BMI 37.5 BP 122/76 Blood Pressure Location Lt brachial Position Sitting Respiration 18 Pulse 102 H Pulse Source Pulse Oximeter Temp 97.9 F Temp Source Temporal Artery Scan Pulse Oximetry (%) 98 Oxygen Delivery Method Room Air Intake Visit Reasons: flu and fever Fine Wire Drawer Required: No Accompanied by: Self / Same As Patient Allergies amoxicillin (AMOXICILLIN) Allergy (Unknown, Verified 04/19/25 13:56) HIVES Medication List - Last Reconciled 04/19/25 by Brandon Beckwith MD cholecalciferol (vitamin D3) 1,250 mcg PO QWEEK doxycycline hyclate 100 mg PO BID metronidazole 500 mg PO BID Tobacco use date assessed: 04/19/25 Dental Screening Dental Screen Date: 04/13/25 HPI HPI Comments History of Present Illness Details History of Present Illness The patient is a 24 year old female presenting with flu-like symptoms for the past three days after her sister was diagnosed with influenza. Symptoms began on Saturday with intermittent hot flashes and a cough. That evening, she took Tylenol for fever symptoms. Overnight, she woke up sweating and recorded a temperature of 104.1??F. Her mother administered more Tylenol, which successfully reduced the fever. Despite the fever resolving, she continues to experience chills, significant weakness, hot and cold flashes, a severe cough, sinus symptoms, and nausea. Her cough is productive of yellow-brownish mucus, which changed from clear sputum on Saturday. She has tried [id number] Mucinex, which provided some relief. She also reports symptomatic improvement with aloe juice, pear juice, and teas. The patient is concurrently taking Doxycycline and Flagyl for a 14-day course, with two days remaining. Medications: - Tylenol as needed for fever - Mucinex as needed for cough - Doxycycline, course ending in 2 days - Flagyl, course ending in 2 days Family History: - Sister was recently diagnosed with influenza. Social History - Housing: The patient lives with her mother and sister. - Employment: The patient missed work today due to her illness. [facility] Medical History (Updated 04/19/25 @ 14:16 by Brandon Beckwith MD) URI (upper respiratory infection) No pertinent past medical history Surgical History (Updated 04/13/25 @ 15:19 by AMALIA Ramirez) No pertinent past surgical history Family History (Updated 04/13/25 @ 15:20 by AMALIA Ramirez) Other No pertinent past medical history Social History Housing: Apartment Patient Tobacco Use Status: Never used Tobacco e-Cigarette/Vaping Use: Never Used service: No Current occupational status: employed Current occupation: post office Review of Systems Narrative Review of Systems - General: Reports fever up to 104.1??F, chills, weakness, sweating, and hot flashes. - Respiratory: Reports a productive cough with yellow-brownish mucus. - HEENT: Reports sinus symptoms. - Gastrointestinal: Reports nausea. All systems reviewed & are unremarkable except as reviewed in HPI and above Physical exam (Primary Care) Vital Signs: Last Vital Signs Temp 97.9 F 04/19/25 13:57 Pulse 102 H 04/19/25 13:57 Resp 18 04/19/25 13:57 BP 122/76 04/19/25 13:57 Pulse Ox 98 04/19/25 13:57 Oxygen Delivery Method Room Air 04/19/25 13:57 BMI result Body Mass Index 37.5 Tobacco/Smoking Status: Tobacco use Status Tobacco use date assessed 04/19/25 04/19/25 13:58 Patient Tobacco Use Status Never used Tobacco 04/19/25 13:58 e-Cigarette/Vaping Use Never Used 04/19/25 13:58 Narrative Physical Exam General: +Alert and oriented, Well nourished, No acute distress. Eye: Pupils are equal, round and reactive to light, Intact accommodation, Extraocular movements are intact, Normal conjunctiva, Vision unchanged. HENT: Normocephalic, Atraumatic, Tympanic membranes are clear, Normal hearing, Oral mucosa is moist, No pharyngeal erythema, Ear canals patent. Respiratory: Lungs CTA bilaterally, No wheeze, Respirations are non-labored, Coughing up yellow-brownish mucus. Cardiovascular: Regular rate, Regular rhythm, S1 auscultated, S2 auscultated, No murmur, Good pulses equal in all extremities, Normal peripheral perfusion, No edema. Gastrointestinal: Soft, Non-tender, Non-distended, Normal bowel sounds, No organomegaly. Musculoskeletal: Normal range of motion, Normal strength, No tenderness, No swelling, No deformity, Normal gait. Integumentary: Warm, Dry, [place], Intact. Neurologic: Alert, Oriented, Normal sensory, Normal motor function, No focal defects, Cranial Nerves II-XII are grossly intact, Normal deep tendon reflexes. Psychiatric: Cooperative, Appropriate mood & affect, Normal judgment. Coding Level of Care Code Est Pt Level 3 (85721) Diagnoses Upper respiratory tract infection, unspecified type J06.9 URI type: unspecified URI Assessment & Plan Assessment & Plan (1) URI (upper respiratory infection): Comment: - The patient is a 24-year-old female presenting with a three-day history of flu-like symptoms, including fever, cough, chills, and weakness, following close contact with her sister who was diagnosed with influenza. - Given her age, symptomatic presentation, and direct exposure, influenza is the most likely diagnosis. - Her fever has resolved with Tylenol, and she is already on broad-spectrum antibiotics (Doxycycline and Flagyl) for another condition, which provides some bacterial coverage. - The plan is for symptomatic management. - A swab for COVID-19 and influenza will be performed for confirmation. - A prescription for a Z-Arsh (azithromycin) is deferred and will only be sent if symptoms do not improve after one week. - A doctor's note for work will be provided. Code(s): J06.9 - Acute upper respiratory infection, unspecified Category: Medical Qualifiers: URI type: unspecified URI Qualified Code(s): J06.9 - Acute upper respiratory infection, unspecified Plan: Health Maintenance: - Recommended receiving an annual flu shot. Patient was informed and verbally consented to the use of an ambient scribe for clinic note documentation during this visit. Plan I explained to the patient that given her age, recent exposure to a family member with influenza, and classic symptoms, the most likely diagnosis is the flu. I informed her that we typically do not treat the flu with antivirals unless symptoms have been present for an extended period, and our focus would be on symptomatic management. I advised her to get swabbed for both COVID-19 and influenza for confirmation. I discussed that I would defer sending a prescription for a Z-Arsh, and she should contact us if her symptoms do not improve after one week. I also noted she is already on antibiotic coverage with doxycycline and Flagyl, which should provide some protection. I provided a doctor's note for her work absence and advised she could return to work the day after tomorrow. Orders: Orders SARS-CoV2/FLU/RSV Today J06.9 - Acute upper respiratory infection, unspecified Patient Instructions: - Go to the back of the hospital to get swabbed for COVID-19 and the flu. - Continue with symptomatic treatments for your symptoms, such as Mucinex, Tylenol, juices, and teas. - You should get your annual flu shot. - You may return to work the day after tomorrow, not tomorrow. - If your symptoms do not get better in one week (by next Saturday), please call our office. We will send a prescription for an antibiotic (Z-Arsh) at that time if needed. - Continue taking your Doxycycline and Flagyl until the 14-day course is complete.
[2025-04-19 13:57] VITALS: BP 122/76; PULSE 102; RESP 18; TEMP 36.6; O2SAT 98; BMI 37.5
--- OUTSIDE RECORDS SUMMARY | 2025-04-19 20:02 | XMS_ITS | Clinical Summary ---
Author Organization [facility] [address] [facility] Address [address] [place] [address] Phone Care Team Providers Care Front Office Help Name Role Phone Martin Roper MD Primary Care Provider [phone] Allergies Active Allergy Reactions Criticality Noted Date [...] improved with famotidine/ bentyl 06/02/20: telemedicine with [facility] GI, lab work for celiac, [...] nl labs for PCOS. Started on apri Jzn-gsbw-tulsnqu adverse reaction to medication 05/17/2016 Overview (05/21/2024): 05/22: tamiflu trigger migraine headache Migraine without aura and wi thout status migrainosus, not intractable 03/08/2016 Depression 08/12/2015 Overview (05/21/2024): Jose David sanches [facility], med provider same agency. 07/20: [...] (Infanrix) 6wks to less than 7yo ,09/07/2003,2002,09/29,2002 [id number] (Pentacel) 2mo to less than 5yo 09/07/2003,2002,2002,07/31 [...] PROCEDURE: HISTORICAL ADENOIDECTOMY NOSE SURGERY 09/05/16 PROCEDURE: [place] UNLISTED PROCEDURE NOSE; COMMENT: Dr. Downey, repair [...] fifth left metatarsal bone; COMMENT: followed by [facility] orthopedics Abdominal pain 03/05 DX:Abdominal lubna n; COMMENT: seen at [facility], neg abd ultrasound/ct for appy Unspecified [...] mild persistent; COMMENT: 04/12/15: nl CXr at [facility] wing Concussion 03/26/2017 DX:Concussion; C OMMENT: 07/20 Concussion while playign Basketball on 07/20/16 Acanthosis nigricans 02/23/2015 DX:Acanthos is nigricans Eczema 07/10/2010 DX:Eczema E-coli UTI 02/26/2019 DX:E-coli UTI; C OMMENT: 02/21 Omnicef Childhood obesity 07/10/2010 DX:Childhood o besity; COMMENT: Normal cholesterol level 08/15. Seen at Dr. Robledo[facility] 1,2,[facility] weight loss [facility] 09/14. Normal abdomenal ultrasound 12/15 met with stonemason helper down 1/2 pound 01/15 good job exercising [...] Most Recently Relevant to Health Maintenance Insurance [facility] PLAN Care Teams Front Office Help Relationship Specialty Start Date End Date Martin Roper MD [address] [place] [phone] PCP - General Internal Medicine 11/04/24
== END 2025-04-19 14:17 | disposition home or self-care (01) ==
LOC: HO.HMCHD 13:49
PROVIDERS: PCP Physician Assistant; Visit Provider Student in an Organized Health Care Education/Training Program
DX: J06.9 Acute upper respiratory infection, unspecified (principal)

== ENCOUNTER → 2025-04-19 13:48 | Outpatient (BNVA) | payer OTHER, SELFPAY | PROVIDERS: PCP Physician Assistant; Visit Provider Student in an Organized Health Care Education/Training Program | DX: J06.9 Acute upper respiratory infection, unspecified (principal) | CPT/HCPCS: 99212 ==